=== PATIENT | female | born 1990 | race Caucasian/White ===

== ENCOUNTER 2024-05-15 23:23 | Emergency (ER) | payer OTHER, SELFPAY ==
[2024-05-15 23:51] VITALS: BP 122/77
[2024-05-16 01:26] VITALS: BP 124/82
--- NOTE | 2024-05-16 02:25 | ED.GENMED ---
History of Present Illness
General
Chief Complaint: Skin Surface Trauma
Time Seen by Provider: 05/16/24 01:30
History of Present Illness
History of Present Illness:
34-year-old female without significant past medical history presenting for concern of a puncture wound to her left second digit. Patient reports she was sewing yesterday and the needle went through her finger at the nailbed. She had to pull all
out. Today. Today she started to have tingling sensation that went up her arm and felt tingling in her head. Denies fever. Denies present numbness or weakness to her extremity. Denies chest pain or difficulty breathing. Denies additional acute
medical complaints
Phy Exam
Physical Exam
Physical Exam:
General: Well-appearing, no clinical signs of dehydration, nontoxic and in no acute distress
HEENT: protecting airway
Neck: appears supple
CV: Normal heart rate
Resp: No accessory muscle use, no increased work of breathing
Abd: No distention
Extremities: No deformities, no swelling, evidence of pinpoint puncture wound at the left second digit proximal nail with suspected exit at the plantar aspect. No erythema or warmth. No swelling. No discharge. No bleeding. Range of motion intact
Neuro: alert, no focal neurologic deficit
: deferred
Rectal: deferred
Psych: Normal affect
Skin: Intact
Course
Orders/Labs/Results
Orders:
Orders
05/16/24 00:06
Finger(s)/Thumb 2 View Lt [CR Finger(s)/thumb Min 2 Vw Lt] Urgent
Comment:
Reason For Exam: needle in finger
Indicate Which Finger:: Index Finger
Vital Signs
Initial and Last Documented VS:
Initial Vital Signs
Temp Pulse Resp BP Pulse Ox
98.7 F 81 16 122/77 98
05/15/24 23:51 05/15/24 23:51 05/15/24 23:51 05/15/24 23:51 05/15/24 23:51
Last Documented Vital Signs
Temp Pulse Resp BP Pulse Ox
98.7 F 80 16 124/82 99
05/15/24 23:51 05/16/24 01:26 05/15/24 23:51 05/16/24 01:26 05/16/24 01:26
MDM/Problems Addressed
MDM/Problems Addressed:
34-year-old female without significant past medical history presenting for concern of a puncture wound to her left second digit by sewing needle. Vital signs are normal.
On exam patient well-appearing, no acute distress or discomfort. Overall benign examination. No neurovascular compromise to the digit. No infectious findings without erythema, warmth, drainage. Small pinpoint area of entrance and exit. No
disruption to the nailbed. X-ray obtained, no bony destruction. Tetanus is up-to-date. Given through and through, will treat empirically with Keflex. Otherwise feel stable for discharge. Return precautions discussed and patient verbalized
understanding
*Critical Care Note
Total Time (30-74mins, 75-104mins- exclusive of procedures): Not Applicable
ED Attending Note
-
Portions of this chart may have been created with voice recognition software.� Occasional wrong word or��sound alike� substitutions may have occurred due to the inherent limitations of voice recognition software.
Discharge Plan
Departure
Patient Disposition: Home (Routine Discharge)
Date of Disposition: 05/16/24
Time of Disposition: 02:17
Patient with high blood pressure during this ER visit?: No
Condition: Good
Discharge Problem:
Puncture wound of finger of left hand
Instructions: Puncture Wound
Prescriptions:
New
cephalexin 500 mg capsule
500 mg PO BID 5 Days Qty: 10 0RF
No Action
One Tablet
1 cap PO DAILY
acetaminophen 325 MG tablet
650 mg PO Q4HPRN PRN (Reason: mild pain) 0RF
ibuprofen 600 MG tablet
600 mg PO Q4HPRN PRN (Reason: cramps) 0RF
Referrals:
UNKNOWN - PT DOES,NOT KNOW [Family Provider] -
Activity Restrictions/Additional Instructions:
You were seen in the emergency department for a puncture wound
You were found to have a normal x-ray of your finger
Please follow-up closely with your primary care physician.
Return to the emergency department for any worsening of your symptoms, or any development of chest pain, difficulty breathing, abdominal pain with persistent vomiting and inability to tolerate food or liquid by mouth (concern for dehydration),
weakness, headache or confusion, fever greater than 100.4, or any additional symptoms that are concerning to you.
Thank you for choosing [facility].
Interventions
Interventions:
*Risk Screen - Suicide Last Done: 05/15/24 23:52
*General Assessment Last Done: 05/16/24 01:28
*Neglect/Abuse Screening Last Done: 05/16/24 01:28
ED- Fall Risk Assessment Last Done: 05/16/24 01:28
*ED COVID-19 Vaccine History Last Done: 05/16/24 01:28
ED-Skin Assessment Last Done: 05/16/24 01:28
Discharge Date and Time
Print Language: SLOVAK
== END 2024-05-16 02:51 | disposition home or self-care (01) ==
LOC: EMR 23:23
PROVIDERS: EMERGENCY PHYSICIAN Student in an Organized Health Care Education/Training Program
DX: S61.231A Puncture wound without foreign body of left index finger without damage to nail, initial encounter (principal); W27.3XXA Contact with needle (sewing), initial encounter
CPT/HCPCS: 99283; 73140